=== PATIENT | male | born 1945 | race Caucasian/White ===

== ENCOUNTER → 2018-03-23 | Day surgery (SDC) | payer OTHER ==
[~2018-03-23] MED LIST: BUPIVACAINE 0.25%/EPI 30ML SDV INJ ONE; DEXAMETHASONE SOD PHOS INJ 4 MG/ML VIAL ONE; FENTANYL CITRATE/PF 100MCG/2 ML INJ ONE; LIDOCAINE 1% W/EPINEPHRINE 20 ML VIAL ONE; LIDOCAINE HCL 1% LOCAL INJ 20 ML VIAL ONE; LIDOCAINE HCL 2% LOCAL INJ 5 ML SDV VIAL INJ ONE; MIDAZOLAM HCL 2 MG/2 ML VIAL ONE; ONDANSETRON HCL INJ 2 MG/ML VIAL ONE; PREDNISONE20 MG PO; PROPOFOL IV EMULSION 10 MG/ML 20 ML VIAL ONE; PYRIDOSTIGMINE PO; SEVOFLURANE INHAL SOLN 250 ML PEN BTL ONE
--- OUTSIDE RECORDS SUMMARY | 2018-03-23 10:38 | XMS REPORT | Summary of Care ---
Author Author [facility] Outpatient Imaging [facility] Outpatient [facility] Address Unknown Phone Unavailable Encounter HQ Roman_chad(FIN) [id number] Date(s): 09/13/16 - 09/13/16 [facility] Outpatient Imaging [facility] [address], [address] [place] [phone] Discharge Disposition: Home or Self Care Attending Physician: TAMARA RAMIREZ Vital Signs No data available for this section Problem List Condition Effective Dates Status Health Status Informant Anemia(Confirmed) Resolved Arthritis(Confirmed) Resolved Asthma(Confirmed) Resolved Esophageal Resolved reflux(Confirmed) HTN - Resolved Hypertension(Confirm ed) Myasthenia Resolved gravis(Confirmed) Thrombocytopenia(Con Resolved firmed) Allergies, Adverse Reactions, Alerts Substance Reaction Severity Status NKDA Active Medications No data available for this section Results No data available for this section Immunizations No data available for this section Procedures Procedure Date Related Diagnosis Body Site Operation Social History Social History Type Response Substance Abuse Use: None. Alcohol Never Smoking Status Former smoker; Exposure to Tobacco Smoke None; Cigarette Smoking Last 365 Days No; Reg Smoking Cessation Counseling No Assessment and Plan No data available for this section
--- OUTSIDE RECORDS SUMMARY | 2018-03-23 10:38 | XMS REPORT | Continuity of Care Document ---
Author Author Interface Organization Interface Address Unknown Phone Unavailable Problems Problem Status Onset Date Classification Date Reported Comments Source S03.4XXA - "SPRAIN OF JAW, INITIAL ENCOU Active 09/13/2016 [facility] UNK Active 04/26/2015 [facility] V76.51 285.9 Active 2014 [facility] Anemia Resolved Problem 09/16/2016 [facility] [place] Arthritis Resolved Problem 09/16/2016 [facility] [place] Asthma Resolved Problem 09/16/2016 [facility] [place] Esophageal reflux Resolved Problem 09/16/2016 [facility] [place] HTN - Hypertension Resolved Problem 09/16/2016 [facility] [place] Myasthenia gravis Resolved Problem 09/16/2016 [facility] [place] Thrombocytopenia Resolved Problem 09/16/2016 [facility] [place] 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 [facility] ANEMIA NOS Active [facility] Medications Medication Details Route Status Patient Instructions Ordering Provider Order Date Source Allergies, Adverse Reactions, Alerts Substance Category Reaction Severity Reaction type Status Date Reported Comments Source NKDA Assertion Drug allergy Active [facility] [place] Immunizations Immunization Date Given Site Status Last Updated Comments Source Results Order Name Results Value Reference Range Date Interpretation Comments Source Abdomen complete US Abdomen complete US EXAM: US ABDOMEN COMPLETE DATE: 01/12/2018 7:53 AM CDT INDICATION: - D69.6 Thrombocytopenia, unspecified ADDITIONAL INFORMATION: None. COMPARISON: None. TECHNIQUE: Multiplanar grayscale and color Doppler ultrasound images of the abdomen. FINDINGS: Liver: Craniocaudal length: 13.4 cm. Normal. Echogenicity: Diffusely coarsened echotexture. Surface nodularity: Mild. Mass (size and location): None. Portal vein: Dilated, however no reversal of flow seen. There is recanalized left umbilical vein and abdominal wall collateral. Splenic vein is also dilated. Bile ducts: Common bile duct diameter: 0.48 cm. Intrahepatic ducts: Normal. Gallbladder: Gallstones: None. Gallbladder sludge: None. Gallbladder wall: 0.12 cm. Normal. Pericholecystic fluid: None. Sonographic Le sign: Absent. Pancreas: Head and uncinate process: Not well seen Body and tail: Not seen. Spleen: Craniocaudal length: 13.7 cm. Mildly enlarged. Mass or focal lesion (size and location): None. Right kidney: Hydronephrosis: None. Size: 10.8 x 4.6 x 6.4 cm. Normal. Echogenicity: Normal. Mass/Stone/Cyst (size and location): None. Left kidney: Hydronephrosis: None. Size: 10.6 x 5.7 x 5.5 cm. Normal. Echogenicity: Normal. Mass/Stone/Cyst (size and location): None. Abdominal aorta and IVC: Visualized portions are normal. Ascites: None. IMPRESSION: 1. Cirrhotic liver with stigmata of portal hypertension including recanalized left medical vein, abdominal wall collaterals and mild splenomegaly. 01/12/2018 - - Read by: Izabel Juárez Dictated Date/time: 01/12/18 08:48 Electronically Signed by: Izabel Juárez 01/12/18 08 :53 FINAL REPORT [facility] TMJ open/closed bilateral DX TMJ open/closed bilateral DX EXAM: XR BILATERAL TEMPOROMANDIBULAR JOINTS 6 VIEWS DATE: 09/13/2016 3:17 PM [facility] INDICATION: S03.4XXA Sprain of jaw, initial encounter ADDITIONAL INFORMATION PER TECHNOLOGIST: Swollen left jaw COMPARISON: None available TECHNIQUE: Lateral and frontal and closed views of the bilateral temporomandibular joints FINDINGS: There is a normal radiographic appearance, alignment and excursion of the bilateral temporomandibular joints. No subchondral collapse, sclerosis, cystic change or fracture is identified on either side. No radiopaque foreign body or subcutaneous emphysema is identified in this region. Facet hypertrophy is partially visualized at the cervical spine. IMPRESSION: No bony abnormality of the temporomandibular joint identified on either side. 09/13/2016 - - Read by: Aby Blue MD Dictated Date/time: 09/13/16 16:58 Electronically Signed by: Aby Blue MD 09/13/16 17 :00 FINAL REPORT [facility] Vital Signs Vital Sign Value Date Comments Source Encounters Location Location Details Encounter Type Encounter Number Reason For Visit Attending Provider ADM Date DC Date Status Source [facility] Outpatient Imaging - [place] Out[facility] Diag Services [id number] TAMARA RAMIREZ 09/13/2016 09/14/2016 [facility] To Procedures Procedure Code Date Perfomer Comments Source Operation [id number] EHSAN To
[2018-03-23 12:07] LABS: BASOPHILS % 0.5 % (0.0-1.0); EOSINOPHILS # (AUTO) 0.1 (0.0-0.4); EOSINOPHILS % 3.3 % (0.0-6.0); HEMOGLOBIN 13.5 g/dL (14.0-18.0); LYMPHOCYTES # (AUTO) 0.9 (1.0-3.2); LYMPHOCYTES % 20.4 % (18.0-39.1); MEAN CORPUSCULAR HEMOGLOBIN 33.5 pg (28-32); MEAN CORPUSCULAR HGB CONC 35.5 g/dL (31-35); MEAN CORPUSCULAR VOLUME 94.3 fL (81-99); MONOCYTES # (AUTO) 0.3 (0.2-0.8); MONOCYTES % 7.1 % (4.4-11.3); NEUTROPHILS # (AUTO) 2.9 (2.1-6.9); NEUTROPHILS % 68.5 % (38.7-80.0); PLATELET COUNT 86 x10e3/uL (140-360); RED BLOOD COUNT 4.03 x10e6/uL (4.3-5.7); RED CELL DISTRIBUTION WIDTH 12.4 % (11.7-14.4)
[2018-03-23 12:28] LABS: ANION GAP 14.2 mmol/L (8-16); BLOOD UREA NITROGEN 8 mg/dL (7-26); BUN/CREATININE RATIO 10 (6-25); CALCIUM 8.9 mg/dL (8.4-10.2); CARBON DIOXIDE 22 mmol/L (22-29); CHLORIDE 104 mmol/L (98-107); EST GLOMERULAR FILTRATION RATE > 60 ML/MIN (60-); GLUCOSE 120 mg/dL (74-118); POTASSIUM 4.2 mmol/L (3.5-5.1); SODIUM 136 mmol/L (136-145)
--- NOTE | 2018-03-23 15:27 | Operative Report ---
DATE OF PROCEDURE: March 23, 2018 PREOPERATIVE DIAGNOSIS: Abscess of the left buttocks from a spider bite. POSTOPERATIVE DIAGNOSIS: Abscess of the left buttocks from a spider bite. OPERATION PERFORMED: Excisional debridement of necrotic abscess of the left buttock. ANESTHESIA: General. COMPLICATIONS: None. ESTIMATED BLOOD LOSS: Minimal. DESCRIPTION OF PROCEDURE: With the patient lying in bed in the lithotomy position under good general anesthesia, the perineum was prepped with Betadine solution and draped in the usual manner. At the tip of the left buttock there was an area with necrotic skin. This was sharply excised with a knife. The necrotic inflammatory process extended all the way into the subcutaneous tissue and this was all sharply debrided with a knife and all of the hardened, infected material was resected from the tip of the buttocks. The whole area was then thoroughly irrigated and perfect hemostasis was ascertained. The wound was then infiltrated with 1/4 percent Marcaine with epinephrine, packed with 1/4 inch iodoform gauze. A dressing was applied. The sponge, lap, needle count was correct. Patient tolerated the procedure well and returned to the recovery room in stable condition. Job#: [id number] DANO
== END | disposition home or self-care (01) ==
LOC: OR 10:36
PROVIDERS: ATTEND Surgery
DX: L02.31 Cutaneous abscess of buttock (principal); S30.860A Insect bite (nonvenomous) of lower back and pelvis, initial encounter; G70.00 Myasthenia gravis without (acute) exacerbation; R05 Cough; K44.9 Diaphragmatic hernia without obstruction or gangrene; I45.10 Unspecified right bundle-branch block; F17.200 Nicotine dependence, unspecified, uncomplicated; W57.XXXA Bitten or stung by nonvenomous insect and other nonvenomous arthropods, initial encounter
CPT/HCPCS: 11042; 36415; 80048; 85025; 93005; J1100; J2001; J2250; J2405

== ENCOUNTER 2018-06-27 12:08 | Observation (INO) | payer OTHER ==
[~2018-06-27] VITALS: Ht 188 cm; Wt 99.4 kg
[~2018-06-27 12:08] MED LIST changes: -BUPIVACAINE 0.25%/EPI 30ML SDV INJ ONE; -DEXAMETHASONE SOD PHOS INJ 4 MG/ML VIAL ONE; -FENTANYL CITRATE/PF 100MCG/2 ML INJ ONE; -LIDOCAINE 1% W/EPINEPHRINE 20 ML VIAL ONE; -LIDOCAINE HCL 1% LOCAL INJ 20 ML VIAL ONE; -LIDOCAINE HCL 2% LOCAL INJ 5 ML SDV VIAL INJ ONE; -MIDAZOLAM HCL 2 MG/2 ML VIAL ONE; -ONDANSETRON HCL INJ 2 MG/ML VIAL ONE; -PROPOFOL IV EMULSION 10 MG/ML 20 ML VIAL ONE; -SEVOFLURANE INHAL SOLN 250 ML PEN BTL ONE
[2018-06-27] MEDS ORDERED: PYRIDOSTIGMINE60 MG PO (12:25)
[2018-06-27] MEDS ORDERED: PREDNISONE10 MG PO (12:25)
[2018-06-27] MEDS ORDERED: SODIUM CHLORIDE 0.9% 500ML 500 ML IV ONE (13:30)
[2018-06-27 13:55] LABS: BASOPHILS % 0.5 % (0.0-1.0); EOSINOPHILS # (AUTO) 0.2 (0.0-0.4); EOSINOPHILS % 3.5 % (0.0-6.0); HEMATOCRIT 37.3 % (38.2-49.6); HEMOGLOBIN 12.8 g/dL (14.0-18.0); LYMPHOCYTES # (AUTO) 1.3 (1.0-3.2); LYMPHOCYTES % 30.5 % (18.0-39.1); MEAN CORPUSCULAR HEMOGLOBIN 33.5 pg (28-32); MEAN CORPUSCULAR HGB CONC 34.3 g/dL (31-35); MEAN CORPUSCULAR VOLUME 97.6 fL (81-99); MONOCYTES # (AUTO) 0.4 (0.2-0.8); MONOCYTES % 9.2 % (4.4-11.3); NEUTROPHILS # (AUTO) 2.4 (2.1-6.9); NEUTROPHILS % 56.1 % (38.7-80.0); PLATELET COUNT 76 x10e3/uL (140-360); RED BLOOD COUNT 3.82 x10e6/uL (4.3-5.7); RED CELL DISTRIBUTION WIDTH 13.2 % (11.7-14.4)
[2018-06-27 14:00] LABS: INR 1.29; PARTIAL THROMBOPLASTIN TIME 25.8 seconds (23.8-35.5); PROTHROMBIN TIME 15.1 seconds (11.9-14.5)
--- NOTE | 2018-06-27 14:04 | Diagnostic Imaging Report ---
EXAMINATION: CHEST 2 VIEWS INDICATION: Rash \S\SOB COMPARISON: None FINDINGS: PA and lateral views TUBES and LINES: None. LUNGS: Lungs are well inflated. Left basilar atelectasis. There is no evidence of pneumonia or pulmonary edema. Right hemidiaphragmatic eventration. PLEURA: No pleural effusion or pneumothorax. Calcified pleural plaque seen on lateral x-ray. HEART AND MEDIASTINUM: The cardiomediastinal silhouette is unremarkable. There are atherosclerotic calcifications within the aorta. BONES AND SOFT TISSUES: No acute osseous lesion. Anterior cervical fusion plate. Soft tissues are unremarkable. UPPER ABDOMEN: No free air under the diaphragm. IMPRESSION: No acute thoracic abnormality. Signed by: Dr. Elvis Rojas M.D. on 06/27/2018 2:01 PM
[2018-06-27 14:10] LABS: ALANINE AMINOTRANSFERASE 21 IU/L (0-55); ALBUMIN 3.4 g/dL (3.5-5.0); ALBUMIN/GLOBULIN RATIO 1.2 (0.8-2.0); ALKALINE PHOSPHATASE 51 IU/L (40-150); ANION GAP 13.3 mmol/L (8-16); BLOOD UREA NITROGEN 10 mg/dL (7-26); BUN/CREATININE RATIO 12 (6-25); CALCIUM 8.8 mg/dL (8.4-10.2); CARBON DIOXIDE 22 mmol/L (22-29); CHLORIDE 107 mmol/L (98-107); CREATINE KINASE 75 IU/L (30-200); CREATININE, SERUM 0.81 mg/dL (0.72-1.25); EST GLOMERULAR FILTRATION RATE > 60 ML/MIN (60-); GLUCOSE 156 mg/dL (74-118); MAGNESIUM 1.8 MG/DL (1.3-2.1); POTASSIUM 3.3 mmol/L (3.5-5.1); SODIUM 139 mmol/L (136-145)
[2018-06-27 14:30] LABS: THYROID STIMULATING HORMONE 3.531 uIU/mL (0.350-4.940)
[2018-06-27 14:59] LABS: CLARITY,URINE CLEAR (CLEAR); COLOR,URINE STRAW (YELLOW); KETONES,URINE NEGATIVE (NEGATIVE); LEUKOCYTE ESTERASE ,URINE NEGATIVE (NEGATIVE); NITRITE,URINE NEGATIVE (NEGATIVE); PROTEIN,URINE DIPSTICK NEGATIVE (NEGATIVE)
[2018-06-27 15:00] LABS: BILIRUBIN,URINE NEGATIVE (NEGATIVE); URINE UROBILINOGEN 0.2 mg/dL (0.2 - 1)
[2018-06-27 15:15] LABS: WBC,URINE (MAN) 0-5 /HPF (0-5)
[2018-06-27 18:26] VITALS: BP 147/65
[2018-06-27 18:33] VITALS: BP 147/65
[2018-06-27 19:56] VITALS: BP 133/75
[2018-06-27 20:00] VITALS: BP 133/75
[2018-06-27 22:12] LABS: CREATINE KINASE 61 IU/L (30-200)
[2018-06-28] VITALS (7 sets, daily range): BP systolic 113–141; BP diastolic 61–81
[2018-06-28 04:54] LABS: BASOPHILS % 0.3 % (0.0-1.0); EOSINOPHILS # (AUTO) 0.1 (0.0-0.4); HEMATOCRIT 35.1 % (38.2-49.6); HEMOGLOBIN 11.9 g/dL (14.0-18.0); LYMPHOCYTES # (AUTO) 1.1 (1.0-3.2); LYMPHOCYTES % 35.3 % (18.0-39.1); MEAN CORPUSCULAR HGB CONC 33.9 g/dL (31-35); MEAN CORPUSCULAR VOLUME 97.2 fL (81-99); MONOCYTES # (AUTO) 0.2 (0.2-0.8); MONOCYTES % 7.9 % (4.4-11.3); NEUTROPHILS # (AUTO) 1.6 (2.1-6.9); NEUTROPHILS % 53.5 % (38.7-80.0); PLATELET COUNT 63 x10e3/uL (140-360); RED BLOOD COUNT 3.61 x10e6/uL (4.3-5.7); RED CELL DISTRIBUTION WIDTH 13.1 % (11.7-14.4)
[2018-06-28 05:15] LABS: ALANINE AMINOTRANSFERASE 19 IU/L (0-55); ALBUMIN 3.1 g/dL (3.5-5.0); ALBUMIN/GLOBULIN RATIO 1.3 (0.8-2.0); ALKALINE PHOSPHATASE 42 IU/L (40-150); ANION GAP 12.6 mmol/L (8-16); BLOOD UREA NITROGEN 10 mg/dL (7-26); BUN/CREATININE RATIO 13 (6-25); CALCIUM 8.4 mg/dL (8.4-10.2); CARBON DIOXIDE 22 mmol/L (22-29); CHLORIDE 107 mmol/L (98-107); CREATININE, SERUM 0.75 mg/dL (0.72-1.25); EST GLOMERULAR FILTRATION RATE > 60 ML/MIN (60-); GLUCOSE 93 mg/dL (74-118); POTASSIUM 3.6 mmol/L (3.5-5.1); SODIUM 138 mmol/L (136-145)
[2018-06-28 05:55] LABS: CREATINE KINASE 53 IU/L (30-200)
[2018-06-28] MEDS: PREDNISONE 20 MG TAB PO SCH (08:51)
[2018-06-28] MEDS: PYRIDOSTIGMINE BROMIDE 60 MG TAB PO SCH ×4 (08:51→20:32)
[2018-06-28] MEDS ORDERED: PREDNISONE 10 MG TAB PO SCH (09:00)
[2018-06-28] MEDS: SODIUM CHLORIDE 0.9% 1000ML 1,000 ML IV SCH ×2 (09:45→23:05)
[2018-06-28] MEDS: LORATADINE 10 MG TAB PO SCH (10:00)
--- NOTE | 2018-06-28 11:17 | History and Physical ---
CHIEF COMPLAINT: Increasing upper respiratory congestion associated with myasthenia gravis. HISTORY OF PRESENT ILLNESS: Patient is a 72-year-old male who has myasthenia gravis diagnosed approximately 5 to 6 years ago. The patient has no complications other than his visual changes. He is on chronic prednisone 5 mg daily. The patient was doing well. He is also on pyridostigmine as well. He was having some visual changes recently and he was placed on a high dose steroids of 40 mg once a day. After he received 40 mg once a day he developed some swelling in both lower extremities with some petechial rash. He had some itching. The patient also had some upper respiratory symptoms, therefore he called his neurologist and was told to go to emergency room. He is on observation. He is doing a little better now on lower dose of 20 mg of prednisone once a day, which changed just a few days ago. Prior to that he was on 40 mg. PAST MEDICAL HISTORY: Myasthenia gravis. PAST SURGICAL HISTORY: Neck surgery. SOCIAL HISTORY: The patient does not smoke or use alcohol. No recreational drugs. ALLERGIES: NO KNOWN ALLERGIES. HOME MEDICATIONS: Pyridostigmine 60 mg four times a day, prednisone 20 mg daily started on recently, but prior to that it was 5 mg daily. PHYSICAL EXAMINATION VITAL SIGNS: Temperature is 98, blood pressure 130/81, pulse rate of 51, respirations 18. GENERAL: The patient is not in acute distress. He is awake. HEENT: Normocephalic, atraumatic. Anicteric. NECK: Supple grossly. PULMONARY: Clear. CARDIOVASCULAR: Regular rate and rhythm. ABDOMEN: Soft, unremarkable. EXTREMITIES: No cyanosis, no edema. NEUROLOGIC: No focal deficit. LABORATORY: Otherwise unremarkable. IMPRESSION 1. Upper respiratory infection. 2. Exacerbation of myasthenia gravis. PLAN: Continue with home medication. Monitor the patient closely. Some IV fluid. Upper respiratory treatment. Claritin once a day and Singulair 10 mg at night. We will monitor the patient closely at this time. Job#: [id number] [place]
[2018-06-28] MEDS ORDERED: ACETAMINOPHEN 325 MG TAB PO PRN (12:00)
--- NOTE | 2018-06-28 21:36 | Cardiology Report ---
DATE OF STUDY: ECHOCARDIOGRAM ATTENDING PHYSICIAN: Dr. Wilma Ibarra. M-MODE: Normal chamber wall dimensions. Normal contractility. Heavily sclerotic aortic valve, cannot exclude vegetation. Normal mitral valve. No pericardial effusion. SECTOR SCAN: Normal chamber wall dimensions. Normal contractility. Heavily sclerotic aortic valve, cannot rule out aortic vegetation. Normal mitral tricuspid valves. No pericardial effusion. CAROTID DOPPLER STUDY WITH COLOR: Trace tricuspid regurgitation. Aortic velocity is 1.3 m/s. CONCLUSIONS 1. Heavily sclerotic aortic valve without aortic stenosis. Aortic vegetation cannot be completely excluded. Clinical correlation is recommended. 2. Left ventricular ejection fraction is approximately 60%. 3. Trace tricuspid regurgitation, probably not clinically significant. Job#: [id number] [place]U cc:WILMA IBARRA MD
[2018-06-29] VITALS: BP 102/55
[2018-06-29 04:00] VITALS: BP 99/54
[2018-06-29 05:50] LABS: BLOOD UREA NITROGEN 11 mg/dL (7-26); BUN/CREATININE RATIO 14 (6-25); CALCIUM 8.4 mg/dL (8.4-10.2); CARBON DIOXIDE 25 mmol/L (22-29); CHLORIDE 106 mmol/L (98-107); EST GLOMERULAR FILTRATION RATE > 60 ML/MIN (60-); GLUCOSE 93 mg/dL (74-118); SODIUM 138 mmol/L (136-145)
[2018-06-29 08:09] VITALS: BP 121/75
[2018-06-29] MEDS: PYRIDOSTIGMINE BROMIDE 60 MG TAB PO SCH (09:00)
[2018-06-29] MEDS: LORATADINE 10 MG TAB PO SCH (09:00)
[2018-06-29] MEDS: PREDNISONE 20 MG TAB PO SCH (09:00)
--- NOTE | 2018-06-29 10:02 | Discharge Summary ---
The patient was in observation. FINAL DIAGNOSES 1. Upper respiratory symptoms, most likely allergic rhinitis with sinus congestion. 2. Baseline myasthenia gravis, progressive. SUMMARY: A 72-year-old male came in with some groin rash area that resolved. The patient stated that when he increased his prednisone to 40 mg daily for his exacerbation of myasthenia gravis, he developed some rash, but that now resolved. He is back to 20 mg of prednisone daily. He does have some sinus congestion, which was treated with Claritin. The patient is asymptomatic. No sign of infection. He will go home today and resume his home medication and continue with prednisone 20 mg daily. I advised the patient to follow with Dr. Morales this week. Dr. Morales is his neurologist. Patient can take Claritin 10 mg daily. Job#: [id number] [place]
[2018-06-29 10:32] VITALS: BP 121/75
[2018-06-29] MEDS ORDERED: LORATADINE10 MG PO (11:00)
[2018-06-29 11:43] VITALS: BP 117/61
== END 2018-06-29 13:02 | disposition home or self-care (01) ==
LOC: ER 12:09 → ERHOLD 16:52 → IMCU 18:04 → MED/SURG2 06-28 06:09
PROVIDERS: ADMIT Internal Medicine; ATTEND Internal Medicine
DX: G70.01 Myasthenia gravis with (acute) exacerbation (principal); J06.9 Acute upper respiratory infection, unspecified; R21 Rash and other nonspecific skin eruption
CPT/HCPCS: 36415 ×3; 71046; 80048; 80053 ×2; 81001; 82550 ×2; 82553 ×2; 83735; 83880; 84443 ×2; 84484 ×2; 85025 ×2; 85610; 85730; 87086; 93005; 93306; 99284; G0378 ×3; J7030; J7040

== ENCOUNTER 2020-08-25 01:19 | Observation (INO) | payer MEDICARE, OTHER ==
[2020-08-25] VITALS (11 sets, daily range): BP systolic 112–163; BP diastolic 62–103
[~2020-08-25] VITALS: Ht 188 cm; Wt 99.8 kg
[~2020-08-25 01:19] MED LIST changes: +LORATADINE10 MG PO; +PREDNISONE10 MG PO; +PYRIDOSTIGMINE60 MG PO
[2020-08-25] MEDS ORDERED: FAMOTIDINE 20 MG/2 ML VIAL IV STA (01:35)
[2020-08-25 01:41] LABS: BASOPHILS % 0.5 % (0.0-1.0); EOSINOPHILS # (AUTO) 0.1 (0.0-0.4); EOSINOPHILS % 1.6 % (0.0-6.0); HEMATOCRIT 38.6 % (38.2-49.6); HEMOGLOBIN 13.4 g/dL (14.0-18.0); LYMPHOCYTES % 26.1 % (18.0-39.1); MEAN CORPUSCULAR HGB CONC 34.7 g/dL (31-35); MONOCYTES # (AUTO) 0.3 (0.2-0.8); MONOCYTES % 7.8 % (4.4-11.3); NEUTROPHILS # (AUTO) 2.4 (2.1-6.9); NEUTROPHILS % 63.5 % (38.7-80.0); PLATELET COUNT 73 x10e3/uL (140-360); RED BLOOD COUNT 3.94 x10e6/uL (4.3-5.7); RED CELL DISTRIBUTION WIDTH 12.7 % (11.7-14.4)
[2020-08-25] MEDS ORDERED: MAGNESIUM/ALUMINUM/SIMETHICONE 30 ML UDC PO ONE (01:45)
[2020-08-25] MEDS ORDERED: BELLADONNA ALK/PHENOBARBITAL 5 ML UDC PO ONE (01:45)
[2020-08-25] MEDS ORDERED: LIDOCAINE VISC 2% SOLN 15 ML UDC PO ONE (01:45)
[2020-08-25] MEDS ORDERED: DONNATAL/LIDOCAINE/MAALOX 30 ML SUSP PO ONE (01:45)
[2020-08-25] MEDS ORDERED: ASPIRIN 81 MG CHEW TAB PO ONE (01:45)
[2020-08-25 01:56] LABS: ALANINE AMINOTRANSFERASE 21 IU/L (0-55); ALBUMIN 3.4 g/dL (3.5-5.0); ALBUMIN/GLOBULIN RATIO 0.8 (0.8-2.0); ALKALINE PHOSPHATASE 79 IU/L (40-150); ANION GAP 10.6 mmol/L (8-16); BLOOD UREA NITROGEN 9 mg/dL (7-26); BUN/CREATININE RATIO 11 (6-25); CALCIUM 8.4 mg/dL (8.4-10.2); CARBON DIOXIDE 23 mmol/L (22-29); CHLORIDE 105 mmol/L (98-107); CREATINE KINASE 84 IU/L (30-200); CREATININE, SERUM 0.82 mg/dL (0.72-1.25); EST GLOMERULAR FILTRATION RATE > 60 ML/MIN (60-); GLUCOSE 134 mg/dL (74-118); POTASSIUM 3.6 mmol/L (3.5-5.1); SODIUM 135 mmol/L (136-145)
[2020-08-25 08:43] LABS: CREATINE KINASE MB 1.8 ng/mL (0-5.0)
[2020-08-25] MEDS ORDERED: MAALOX/LIDOCAINE/BENADRYL/NYST 30 ML BTL PO PRN ×2 (10:00→15:45)
[2020-08-25] MEDS ORDERED: HYDRALAZINE HCL 25 MG TAB PO PRN (10:00)
[2020-08-25] MEDS ORDERED: ALPRAZOLAM 0.25 MG TAB PO PRN (10:00)
[2020-08-25] MEDS ORDERED: AMLODIPINE BESYLATE 5 MG TAB PO ONE (11:00)
[2020-08-25] MEDS: FAMOTIDINE 20 MG TAB PO SCH ×2 (11:50→16:10)
[2020-08-25] MEDS ORDERED: SODIUM CHLORIDE 0.9% 50ML 50 ML ONE (12:04)
[2020-08-25] MEDS ORDERED: IOPAMIDOL 370 MG/ML 200 ML INFUS..BTL INJ ONE (12:04)
[2020-08-25] MEDS ORDERED: PYRIDOSTIGMINE BROMIDE 60 MG TAB PO SCH (15:00)
[2020-08-25] MEDS ORDERED: MAGNESIUM/ALUMINUM/SIMETHICONE 30 ML UDC PO PRN (15:30)
[2020-08-25] MEDS: PYRIDOSTIGMINE BROMIDE 60 MG TAB PO SCH ×2 (16:10→19:07)
[2020-08-25] MEDS ORDERED: PREDNISONE 5 MG TAB PO SCH (17:00)
[2020-08-25] MEDS ORDERED: PREDNISONE 10 MG TAB PO SCH ×2 (17:00)
[2020-08-25 17:34] LABS: CREATINE KINASE MB 2.1 ng/mL (0-5.0)
[2020-08-26 00:20] VITALS: BP 118/56
[2020-08-26 04:00] VITALS: BP 129/72
[2020-08-26 06:33] LABS: BASOPHILS % 0.4 % (0.0-1.0); EOSINOPHILS # (AUTO) 0.1 (0.0-0.4); EOSINOPHILS % 3.2 % (0.0-6.0); HEMATOCRIT 34.6 % (38.2-49.6); HEMOGLOBIN 11.8 g/dL (14.0-18.0); LYMPHOCYTES # (AUTO) 0.9 (1.0-3.2); LYMPHOCYTES % 36.9 % (18.0-39.1); MEAN CORPUSCULAR HEMOGLOBIN 33.9 pg (28-32); MEAN CORPUSCULAR HGB CONC 34.1 g/dL (31-35); MEAN CORPUSCULAR VOLUME 99.4 fL (81-99); MONOCYTES # (AUTO) 0.3 (0.2-0.8); MONOCYTES % 10.4 % (4.4-11.3); NEUTROPHILS # (AUTO) 1.2 (2.1-6.9); NEUTROPHILS % 49.1 % (38.7-80.0); PLATELET COUNT 59 x10e3/uL (140-360); RED BLOOD COUNT 3.48 x10e6/uL (4.3-5.7); RED CELL DISTRIBUTION WIDTH 12.8 % (11.7-14.4)
[2020-08-26 06:39] LABS: CHOL/HDL RATIO 2.1 (3.9-4.7)
[2020-08-26] MEDS: FAMOTIDINE 20 MG TAB PO SCH (07:11)
[2020-08-26 08:00] VITALS: BP 140/77
[2020-08-26] MEDS: PYRIDOSTIGMINE BROMIDE 60 MG TAB PO SCH (08:46)
[2020-08-26 08:55] VITALS: BP 140/77
[2020-08-26] MEDS ORDERED: PREDNISONE 10 MG TAB PO SCH (09:00)
[2020-08-26] MEDS ORDERED: AMLODIPINE BESYLATE 5 MG TAB PO SCH (09:00)
[2020-08-26 09:07] VITALS: BP 140/77
[2020-08-26] MEDS ORDERED: OMEPRAZOLE40 MG (10:14)
[2020-08-26] MEDS ORDERED: PROPRANOLOL HCL10 MG PO (10:14)
[2020-08-26] MEDS ORDERED: TRAMADOL HCL25 GM PO (10:15)
== END 2020-08-26 10:45 | disposition home or self-care (01) ==
LOC: ER 01:27 → ERHOLD 03:17 → MED/SURG3 03:39
PROVIDERS: ADMIT Internal Medicine; ATTEND Internal Medicine
DX: R07.89 Other chest pain (principal); G70.00 Myasthenia gravis without (acute) exacerbation; R10.13 Epigastric pain; Z20.828 Contact with and (suspected) exposure to other viral communicable diseases; E66.9 Obesity, unspecified; F41.1 Generalized anxiety disorder; K21.9 Gastro-esophageal reflux disease without esophagitis; K74.60 Unspecified cirrhosis of liver; I85.10 Secondary esophageal varices without bleeding; Z68.28 Body mass index [BMI] 28.0-28.9, adult
CPT/HCPCS: 36415 ×2; 71045; 71260; 74177; 80053; 80061; 82550; 82553; 83690; 83880; 84484; 85025 ×2; 93005; 96374; 99284; G0378 ×2; J7512 ×2; Q9967; U0002

== ENCOUNTER 2022-07-13 21:15 | Inpatient (IN) | payer MEDICARE ==
[~2022-07-13] VITALS: Ht 188 cm; Wt 97.5 kg
[~2022-07-13 21:15] MED LIST changes: +OMEPRAZOLE40 MG; +PROPRANOLOL HCL10 MG PO; +TRAMADOL HCL25 GM PO
[2022-07-13] MEDS ORDERED: LIDOCAINE JELLY 2% 10ML URO-JET TOP ONE (21:30)
[2022-07-13 21:31] LABS: BASOPHILS % 0.2 % (0.0-1.0); EOSINOPHILS # (AUTO) 0.1 (0.0-0.4); EOSINOPHILS % 1.2 % (0.0-6.0); HEMOGLOBIN 12.5 g/dL (14.0-18.0); LYMPHOCYTES # (AUTO) 0.9 (1.0-3.2); LYMPHOCYTES % 16.1 % (18.0-39.1); MEAN CORPUSCULAR HEMOGLOBIN 34.8 pg (28-32); MEAN CORPUSCULAR HGB CONC 33.8 g/dL (31-35); MEAN CORPUSCULAR VOLUME 103.1 fL (81-99); MONOCYTES # (AUTO) 0.6 (0.2-0.8); MONOCYTES % 10.8 % (4.4-11.3); NEUTROPHILS # (AUTO) 4.2 (2.1-6.9); NEUTROPHILS % 71.4 % (38.7-80.0); PLATELET COUNT 61 x10e3/uL (140-360); RED BLOOD COUNT 3.59 x10e6/uL (4.3-5.7); RED CELL DISTRIBUTION WIDTH 12.5 % (11.7-14.4)
[2022-07-13] MEDS ORDERED: KETOROLAC TROMETHAMINE 30 MG/ML VIAL IV STA (21:51)
[2022-07-13 21:53] LABS: ANION GAP 14.6 mmol/L (8-16); CALCIUM 8.4 mg/dL (8.4-10.2); CREATININE, SERUM 0.89 mg/dL (0.72-1.25); POTASSIUM 3.6 mmol/L (3.5-5.1)
[2022-07-13] MEDS ORDERED: KETOROLAC TROMETHAMINE 30 MG/ML VIAL ONE (22:07)
[2022-07-13 22:28] LABS: BACTERIA,URINE MANY /HPF; CLARITY,URINE CLOUDY (CLEAR); COLOR,URINE AMBER (YELLOW); EPITHELIAL CELLS,URINE FEW /LPF; KETONES,URINE NEGATIVE (NEGATIVE); LEUKOCYTE ESTERASE ,URINE NEGATIVE (NEGATIVE); NITRITE,URINE NEGATIVE (NEGATIVE); PROTEIN,URINE DIPSTICK >=300 (NEGATIVE); RBC,URINE >50 /HPF (0-5); URINE UROBILINOGEN 1 mg/dL (0.2 - 1)
[2022-07-13] MEDS ORDERED: Morphine 4mg INJECTION 4 MG/ML INJ IV PRN (23:30)
[2022-07-13] MEDS ORDERED: ONDANSETRON HCL INJ 2MG/ML 2ML 2 MG/ML VIAL IV PRN (23:30)
[2022-07-13] MEDS: SODIUM CHLORIDE 0.9% 1000ML 1,000 ML IV SCH (23:53)
[2022-07-13] MEDS ORDERED: Morphine 4mg INJECTION 4 MG/ML INJ ONE (23:57)
[2022-07-13] MEDS ORDERED: CEFTRIAXONE 1 GM VIAL ONE (23:58)
[2022-07-13] MEDS ORDERED: SODIUM CHLORIDE 0.9% 1000ML 1,000 ML ONE (23:58)
[2022-07-13] MEDS ORDERED: ONDANSETRON HCL INJ 2MG/ML 2ML 2 MG/ML VIAL ONE (23:58)
[2022-07-14] MEDS ORDERED: PREDNISONE5 MG PO (00:39)
[2022-07-14] MEDS ORDERED: PREDNISONE10 MG PO (00:39)
[2022-07-14] MEDS ORDERED: PYRIDOSTIGMINE60 MG PO (00:39)
[2022-07-14] MEDS ORDERED: FLOMAX0.4 MG PO (00:45)
[2022-07-14] MEDS ORDERED: DILTIAZEM 24HR120 M1 PO (00:45)
[2022-07-14 05:27] LABS: BASOPHILS % 0.3 % (0.0-1.0); EOSINOPHILS # (AUTO) 0.1 (0.0-0.4); EOSINOPHILS % 2.1 % (0.0-6.0); HEMATOCRIT 31.9 % (38.2-49.6); HEMOGLOBIN 10.8 g/dL (14.0-18.0); LYMPHOCYTES # (AUTO) 0.6 (1.0-3.2); MEAN CORPUSCULAR HEMOGLOBIN 35.1 pg (28-32); MEAN CORPUSCULAR HGB CONC 33.9 g/dL (31-35); MEAN CORPUSCULAR VOLUME 103.6 fL (81-99); MONOCYTES # (AUTO) 0.3 (0.2-0.8); MONOCYTES % 9.6 % (4.4-11.3); NEUTROPHILS # (AUTO) 2.3 (2.1-6.9); NEUTROPHILS % 69.7 % (38.7-80.0); RED BLOOD COUNT 3.08 x10e6/uL (4.3-5.7); RED CELL DISTRIBUTION WIDTH 12.5 % (11.7-14.4)
[2022-07-14 05:50] LABS: ANION GAP 10.8 mmol/L (8-16); CALCIUM 7.8 mg/dL (8.4-10.2); CREATININE, SERUM 1.07 mg/dL (0.72-1.25); POTASSIUM 3.8 mmol/L (3.5-5.1)
[2022-07-14 05:54] LABS: PLATELET COUNT 45 x10e3/uL (140-360)
[2022-07-14] MEDS: SODIUM CHLORIDE 0.9% 1000ML 1,000 ML IV SCH ×2 (07:19→18:08)
[2022-07-14] MEDS: DILTIAZEM HCL ER 120 MG CAP PO SCH (10:23)
[2022-07-14] MEDS ORDERED: DOCUSATE SODIUM 100 MG CAP PO PRN (11:15)
[2022-07-14] MEDS ORDERED: BENZONATATE 100 MG CAP PO PRN (11:15)
[2022-07-14] MEDS ORDERED: SIMETHICONE 80 MG CHEW PO PRN (11:15)
[2022-07-14] MEDS ORDERED: DEXTROSE 50% SYRINGE 50 ML IV PRN (11:15)
[2022-07-14] MEDS ORDERED: ONDANSETRON HCL INJ 2MG/ML 2ML 2 MG/ML VIAL IV PRN (11:15)
[2022-07-14] MEDS ORDERED: ACETAMINOPHEN 325 MG TAB PO PRN (11:15)
[2022-07-14] MEDS ORDERED: ALBUTEROL/IPRATROPIUM 3 ML NEB NEB PRN (11:15)
[2022-07-14] MEDS ORDERED: HYDRALAZINE HCL 20 MG/ML VIAL IV PRN (11:15)
[2022-07-14] MEDS ORDERED: LIDOCAINE 4% PATCH TP PRN (11:15)
[2022-07-14] MEDS ORDERED: DIPHENHYDRAMINE HCL 25 MG CAP PO PRN (11:15)
[2022-07-14] MEDS ORDERED: POTASSIUM CHLORIDE 20 MEQ TAB CR PO PRN (11:15)
[2022-07-14 13:10] VITALS: BP 147/76
[2022-07-14 14:19] VITALS: BP 147/76
[2022-07-14 14:24] VITALS: BP 147/76
[2022-07-14] MEDS: PYRIDOSTIGMINE BROMIDE 60 MG TAB PO SCH ×2 (14:59→21:00)
[2022-07-14 15:58] VITALS: BP 153/79
[2022-07-14] MEDS: ENOXAPARIN SOD INJ 40 MG/0.4 ML SYR SC SCH (17:00)
[2022-07-14] MEDS: TAMSULOSIN HCL 0.4 MG CAP PO SCH (17:12)
[2022-07-14 20:00] VITALS: BP 133/62
[2022-07-14 21:00] VITALS: BP 133/62
[2022-07-14] MEDS ORDERED: MELATONIN 5 MG TABLET PO PRN (21:00)
[2022-07-14] MEDS ORDERED: PREDNISONE 5 MG TAB PO SCH (21:00)
[2022-07-15] VITALS (8 sets, daily range): BP systolic 120–145; BP diastolic 59–76
[2022-07-15 05:38] LABS: BASOPHILS % 0.4 % (0.0-1.0); EOSINOPHILS % 1.8 % (0.0-6.0); HEMATOCRIT 30.1 % (38.2-49.6); HEMOGLOBIN 10.1 g/dL (14.0-18.0); LYMPHOCYTES # (AUTO) 0.6 (1.0-3.2); LYMPHOCYTES % 24.7 % (18.0-39.1); MEAN CORPUSCULAR HEMOGLOBIN 35.1 pg (28-32); MEAN CORPUSCULAR HGB CONC 33.6 g/dL (31-35); MEAN CORPUSCULAR VOLUME 104.5 fL (81-99); MONOCYTES # (AUTO) 0.2 (0.2-0.8); MONOCYTES % 10.8 % (4.4-11.3); NEUTROPHILS # (AUTO) 1.4 (2.1-6.9); NEUTROPHILS % 62.3 % (38.7-80.0); RED BLOOD COUNT 2.88 x10e6/uL (4.3-5.7); RED CELL DISTRIBUTION WIDTH 12.3 % (11.7-14.4)
[2022-07-15 06:07] LABS: ANION GAP 9.7 mmol/L (8-16); CALCIUM 7.6 mg/dL (8.4-10.2); CREATININE, SERUM 0.73 mg/dL (0.72-1.25); MAGNESIUM 2.3 MG/DL (1.3-2.1); PHOSPHORUS 3.1 MG/DL (2.3-4.7); POTASSIUM 3.7 mmol/L (3.5-5.1)
[2022-07-15 06:14] LABS: PLATELET COUNT 43 x10e3/uL (140-360)
[2022-07-15 06:17] LABS: THYROID STIMULATING HORMONE 1.242 uIU/mL (0.350-4.940)
[2022-07-15] MEDS: PYRIDOSTIGMINE BROMIDE 60 MG TAB PO SCH ×2 (09:00→15:00)
[2022-07-15] MEDS: PANTOPRAZOLE SOD 40 MG TABEC PO SCH (09:00)
[2022-07-15] MEDS ORDERED: PREDNISONE 10 MG TAB PO SCH (09:00)
[2022-07-15] MEDS: DILTIAZEM HCL ER 120 MG CAP PO SCH (09:00)
[2022-07-15] MEDS: TAMSULOSIN HCL 0.4 MG CAP PO SCH ×2 (09:00→17:00)
[2022-07-15] MEDS: ENOXAPARIN SOD INJ 40 MG/0.4 ML SYR SC SCH (17:00)
[2022-07-15] MEDS: PREDNISONE 5 MG TAB PO SCH (18:30)
[2022-07-15] MEDS: SODIUM CHLORIDE 0.9% 1000ML 1,000 ML IV SCH ×2 (19:25→20:32)
[2022-07-16] VITALS (8 sets, daily range): BP systolic 105–140; BP diastolic 55–70
[2022-07-16] MEDS: SODIUM CHLORIDE 0.9% 1000ML 1,000 ML IV SCH (08:44)
[2022-07-16] MEDS: DILTIAZEM HCL ER 120 MG CAP PO SCH (08:44)
[2022-07-16] MEDS: TAMSULOSIN HCL 0.4 MG CAP PO SCH ×2 (08:44→16:42)
[2022-07-16] MEDS: PYRIDOSTIGMINE BROMIDE 60 MG TAB PO SCH ×3 (08:45→18:18)
[2022-07-16] MEDS: PANTOPRAZOLE SOD 40 MG TABEC PO SCH (08:45)
[2022-07-16] MEDS: PREDNISONE 10 MG TAB PO SCH (08:45)
[2022-07-16] MEDS: PREDNISONE 5 MG TAB PO SCH (18:19)
[2022-07-17] VITALS (8 sets, daily range): BP systolic 131–155; BP diastolic 64–72
[2022-07-17] MEDS: SODIUM CHLORIDE 0.9% 1000ML 1,000 ML IV SCH ×2 (01:03→14:14)
[2022-07-17 07:08] LABS: BASOPHILS % 0.5 % (0.0-1.0); EOSINOPHILS # (AUTO) 0.1 (0.0-0.4); EOSINOPHILS % 2.7 % (0.0-6.0); HEMATOCRIT 29.4 % (38.2-49.6); HEMOGLOBIN 9.8 g/dL (14.0-18.0); LYMPHOCYTES # (AUTO) 0.6 (1.0-3.2); LYMPHOCYTES % 32.6 % (18.0-39.1); MEAN CORPUSCULAR HGB CONC 33.3 g/dL (31-35); MONOCYTES # (AUTO) 0.2 (0.2-0.8); MONOCYTES % 8.7 % (4.4-11.3); RED CELL DISTRIBUTION WIDTH 12.3 % (11.7-14.4)
[2022-07-17 07:17] LABS: PLATELET COUNT 43 x10e3/uL (140-360)
[2022-07-17 07:27] LABS: ANION GAP 8.5 mmol/L (8-16); CALCIUM 7.5 mg/dL (8.4-10.2); CREATININE, SERUM 0.71 mg/dL (0.72-1.25); POTASSIUM 3.5 mmol/L (3.5-5.1)
[2022-07-17] MEDS: PREDNISONE 10 MG TAB PO SCH (09:00)
[2022-07-17] MEDS: PYRIDOSTIGMINE BROMIDE 60 MG TAB PO SCH ×3 (09:00→17:13)
[2022-07-17] MEDS: TAMSULOSIN HCL 0.4 MG CAP PO SCH ×2 (09:07→17:12)
[2022-07-17] MEDS: PANTOPRAZOLE SOD 40 MG TABEC PO SCH (09:09)
[2022-07-17] MEDS: DILTIAZEM HCL ER 120 MG CAP PO SCH (09:10)
[2022-07-17 09:31] LABS: EOSINOPHILS % (MANUAL) 4 % (0-7); LYMPHOCYTES % (MANUAL) 23 % (19-48); MONOCYTES % (MANUAL) 10 % (3.4-9.0); NEUTROPHILS % (MANUAL) 63 % (40-74); PLATELET ESTIMATE MARKEDLY DECREASED; PLATELET MORPHOLOGY COMMENT NORMAL; RBC MORPHOLOGY COMMENT ABNORMAL
[2022-07-17 16:58] LABS: HEMATOCRIT 33.6 % (38.2-49.6); HEMOGLOBIN 11.2 g/dL (14.0-18.0); MEAN CORPUSCULAR HGB CONC 33.3 g/dL (31-35); PLATELET COUNT 50 x10e3/uL (140-360); RED CELL DISTRIBUTION WIDTH 12.3 % (11.7-14.4)
[2022-07-17 17:08] LABS: INR 1.11; PROTHROMBIN TIME 15.3 seconds (11.9-14.5)
[2022-07-17 17:09] LABS: PARTIAL THROMBOPLASTIN TIME 27.4 seconds (23.8-35.5)
[2022-07-17 17:11] LABS: EOSINOPHILS % (MANUAL) 1 % (0-7); LYMPHOCYTES % (MANUAL) 17 % (19-48); MONOCYTES % (MANUAL) 8 % (3.4-9.0); NEUTROPHILS % (MANUAL) 74 % (40-74)
[2022-07-17] MEDS: PREDNISONE 5 MG TAB PO SCH (17:13)
[2022-07-17 17:35] LABS: FERRITIN 72.38 ng/mL (21.81-274.66)
[2022-07-17 18:19] LABS: PLATELET ESTIMATE MARKEDLY DECREASED; PLATELET MORPHOLOGY COMMENT NORMAL; RBC MORPHOLOGY COMMENT NORMAL
[2022-07-18 00:49] VITALS: BP 140/75
[2022-07-18] MEDS: SODIUM CHLORIDE 0.9% 1000ML 1,000 ML IV SCH (05:50)
[2022-07-18 05:59] VITALS: BP 164/74
[2022-07-18 06:10] LABS: BASOPHILS % 0.4 % (0.0-1.0); EOSINOPHILS # (AUTO) 0.1 (0.0-0.4); EOSINOPHILS % 2.6 % (0.0-6.0); HEMATOCRIT 31.4 % (38.2-49.6); HEMOGLOBIN 11.3 g/dL (14.0-18.0); LYMPHOCYTES # (AUTO) 0.8 (1.0-3.2); LYMPHOCYTES % 31.2 % (18.0-39.1); MEAN CORPUSCULAR HEMOGLOBIN 35.6 pg (28-32); MEAN CORPUSCULAR VOLUME 99.1 fL (81-99); MONOCYTES # (AUTO) 0.2 (0.2-0.8); MONOCYTES % 8.3 % (4.4-11.3); NEUTROPHILS # (AUTO) 1.5 (2.1-6.9); NEUTROPHILS % 57.1 % (38.7-80.0); PLATELET COUNT 50 x10e3/uL (140-360); RED BLOOD COUNT 3.17 x10e6/uL (4.3-5.7); RED CELL DISTRIBUTION WIDTH 12.4 % (11.7-14.4)
[2022-07-18 06:31] LABS: ANION GAP 12.7 mmol/L (8-16); CALCIUM 8.1 mg/dL (8.4-10.2); CREATININE, SERUM 0.68 mg/dL (0.72-1.25); POTASSIUM 3.7 mmol/L (3.5-5.1)
[2022-07-18 08:29] VITALS: BP_SYST 122; BP_SYST 145; BP_DIAS 69
[2022-07-18 08:59] LABS: BASOPHILS % 0.4 % (0.0-1.0); EOSINOPHILS # (AUTO) 0.1 (0.0-0.4); EOSINOPHILS % 2.7 % (0.0-6.0); HEMATOCRIT 33.1 % (38.2-49.6); HEMOGLOBIN 11.1 g/dL (14.0-18.0); LYMPHOCYTES # (AUTO) 0.8 (1.0-3.2); MEAN CORPUSCULAR HEMOGLOBIN 34.8 pg (28-32); MEAN CORPUSCULAR HGB CONC 33.5 g/dL (31-35); MEAN CORPUSCULAR VOLUME 103.8 fL (81-99); MONOCYTES # (AUTO) 0.2 (0.2-0.8); NEUTROPHILS # (AUTO) 1.4 (2.1-6.9); NEUTROPHILS % 56.5 % (38.7-80.0); PLATELET COUNT 53 x10e3/uL (140-360); RED BLOOD COUNT 3.19 x10e6/uL (4.3-5.7); RED CELL DISTRIBUTION WIDTH 12.1 % (11.7-14.4)
[2022-07-18] MEDS: PREDNISONE 10 MG TAB PO SCH (09:27)
[2022-07-18] MEDS: PANTOPRAZOLE SOD 40 MG TABEC PO SCH (09:27)
[2022-07-18] MEDS: TAMSULOSIN HCL 0.4 MG CAP PO SCH (09:27)
[2022-07-18] MEDS: DILTIAZEM HCL ER 120 MG CAP PO SCH (09:28)
[2022-07-18 12:03] VITALS: BP 124/63
[2022-07-18 15:57] VITALS: BP 137/75
[2022-07-18] MEDS ORDERED: ONDANSETRON HCL 4 MG ORAL DISINTEGRATING TAB PO PRN (18:00)
== END 2022-07-18 17:52 | disposition home or self-care (01) | DRG 694 ==
LOC: ER 21:24 → ERHOLD 23:28 → MED/SURG2 07-14 12:33 → OBSVTOIN 07-16 11:26
PROVIDERS: ADMIT Internal Medicine; ATTEND Internal Medicine
DX: N13.2 Hydronephrosis with renal and ureteral calculous obstruction (principal); K76.6 Portal hypertension; D61.818 Other pancytopenia; K92.1 Melena; G70.00 Myasthenia gravis without (acute) exacerbation; D69.59 Other secondary thrombocytopenia; K74.60 Unspecified cirrhosis of liver; K75.81 Nonalcoholic steatohepatitis (NASH); I10 Essential (primary) hypertension; I86.4 Gastric varices; N40.0 Benign prostatic hyperplasia without lower urinary tract symptoms; N31.9 Neuromuscular dysfunction of bladder, unspecified; E66.9 Obesity, unspecified; K42.9 Umbilical hernia without obstruction or gangrene; N50.0 Atrophy of testis; D64.9 Anemia, unspecified; E83.51 Hypocalcemia; K57.30 Diverticulosis of large intestine without perforation or abscess without bleeding; Z68.27 Body mass index [BMI] 27.0-27.9, adult; Z83.3 Family history of diabetes mellitus; Z82.49 Family history of ischemic heart disease and other diseases of the circulatory system; Z87.891 Personal history of nicotine dependence; Z20.822 Contact with and (suspected) exposure to COVID-19
CPT/HCPCS: 36415; 51700; 74018; 74176; 80048; 81001; 82270; 82607; 82728; 82746; 83540; 83735; 83970; 84100; 84443; 84466; 84550; 85007; 85025; 85027; 85045; 85610; 85730; 86850; 86900; 87086; 94799; 96361; 99251; 99284; G0378; J0696; J1650; J1885; J2270; J2405; J7030; J7512

== ENCOUNTER 2022-07-20 20:14 | Emergency (ER) | payer MEDICARE ==
[~2022-07-20] VITALS: Ht 188 cm; Wt 97.5 kg
[~2022-07-20 20:14] MED LIST changes: +DILTIAZEM 24HR120 M1 PO; +FLOMAX0.4 MG PO; +PREDNISONE5 MG PO
[2022-07-20 20:45] LABS: BASOPHILS % 0.3 % (0.0-1.0); EOSINOPHILS # (AUTO) 0.1 (0.0-0.4); HEMATOCRIT 31.8 % (38.2-49.6); HEMOGLOBIN 10.7 g/dL (14.0-18.0); LYMPHOCYTES # (AUTO) 0.5 (1.0-3.2); LYMPHOCYTES % 17.6 % (18.0-39.1); MEAN CORPUSCULAR HEMOGLOBIN 35.1 pg (28-32); MEAN CORPUSCULAR HGB CONC 33.6 g/dL (31-35); MEAN CORPUSCULAR VOLUME 104.3 fL (81-99); MONOCYTES # (AUTO) 0.2 (0.2-0.8); MONOCYTES % 8.1 % (4.4-11.3); NEUTROPHILS # (AUTO) 2.1 (2.1-6.9); NEUTROPHILS % 71.7 % (38.7-80.0); PLATELET COUNT 59 x10e3/uL (140-360); RED BLOOD COUNT 3.05 x10e6/uL (4.3-5.7); RED CELL DISTRIBUTION WIDTH 12.6 % (11.7-14.4)
[2022-07-20 21:06] LABS: ALBUMIN 3.1 g/dL (3.5-5.0); ALBUMIN/GLOBULIN RATIO 1.1 (0.8-2.0); ANION GAP 14.9 mmol/L (8-16); CALCIUM 8.4 mg/dL (8.4-10.2); CREATININE, SERUM 0.74 mg/dL (0.72-1.25); POTASSIUM 3.9 mmol/L (3.5-5.1)
[2022-07-20 21:13] LABS: CREATINE KINASE MB 5.5 ng/mL (0-5.0)
== END 2022-07-20 21:58 | disposition home or self-care (01) ==
LOC: ER 20:18
DX: R60.9 Edema, unspecified (principal); K74.60 Unspecified cirrhosis of liver; I10 Essential (primary) hypertension; G70.00 Myasthenia gravis without (acute) exacerbation; R94.31 Abnormal electrocardiogram [ECG] [EKG]
CPT/HCPCS: 36415; 71045; 80053; 82550; 82553; 83880; 84484; 85025; 93005; 99283

== ENCOUNTER 2024-08-30 13:11 | Emergency (ER) | payer MEDICARE ==
[~2024-08-30] VITALS: Ht 188 cm; Wt 97.5 kg
[2024-08-30 14:33] VITALS: PULSE 86; RESP 17; TEMP 99; O2SAT 97
[2024-08-30] MEDS ORDERED: PYRIDOSTIGMINE BROMIDE 60 MG TAB PO STA (14:41)
[2024-08-30] MEDS ORDERED: PREDNISONE 5 MG TAB PO ONE (14:45)
[2024-08-30 14:54] LABS: BASOPHILS % 0.4 % (0.0-1.0); EOSINOPHILS % 0.4 % (0.0-6.0); HEMOGLOBIN 12.5 g/dL (14.0-18.0); LYMPHOCYTES # (AUTO) 0.4 (1.0-3.2); LYMPHOCYTES % 16.2 % (18.0-39.1); MEAN CORPUSCULAR HEMOGLOBIN 35.8 pg (28-32); MEAN CORPUSCULAR HGB CONC 32.9 g/dL (31-35); MEAN CORPUSCULAR VOLUME 108.9 fL (81-99); MONOCYTES # (AUTO) 0.3 (0.2-0.8); MONOCYTES % 14.1 % (4.4-11.3); NEUTROPHILS # (AUTO) 1.7 (2.1-6.9); NEUTROPHILS % 68.9 % (38.7-80.0); RED BLOOD COUNT 3.49 x10e6/uL (4.3-5.7); RED CELL DISTRIBUTION WIDTH 13.9 % (11.7-14.4); WHITE BLOOD COUNT 2.41 x10e3/uL (4.8-10.8)
[2024-08-30 14:58] LABS: PLATELET COUNT 45 x10e3/uL (140-360)
[2024-08-30 15:18] LABS: CORONAVIRUS COVID-19 AG NEGATIVE (NEGATIVE); INFLUENZA A AG NEGATIVE (NEGATIVE); INFLUENZA B AG NEGATIVE (NEGATIVE)
[2024-08-30 15:19] LABS: ALBUMIN 2.9 g/dL (3.5-5.0); ALBUMIN/GLOBULIN RATIO 1.1 (0.8-2.0); ANION GAP 12.1 mmol/L (8-16); BILIRUBIN,TOTAL 2.7 mg/dL (0.2-1.2); CALCIUM 8.2 mg/dL (8.4-10.2); CREATININE, SERUM 0.79 mg/dL (0.72-1.25); POTASSIUM 4.1 mmol/L (3.5-5.1); TOTAL PROTEIN 5.5 g/dL (6.5-8.1)
== END 2024-08-30 16:43 | disposition home or self-care (01) ==
LOC: ER 14:35
DX: R50.9 Fever, unspecified (principal); B34.9 Viral infection, unspecified; R05.9 Cough, unspecified; R19.7 Diarrhea, unspecified; I10 Essential (primary) hypertension; G70.00 Myasthenia gravis without (acute) exacerbation
CPT/HCPCS: 36415; 80053; 85025; 99283

== ENCOUNTER 2024-11-04 17:11 | Inpatient (IN) | payer MEDICARE ==
[~2024-11-04] VITALS: Ht 188 cm; Wt 94.9 kg
[2024-11-04 17:40] VITALS: TEMP 98.5
[2024-11-04 17:59] LABS: BASOPHILS % 0.3 % (0.0-1.0); EOSINOPHILS % 0.8 % (0.0-6.0); HEMOGLOBIN 11.3 g/dL (14.0-18.0); LYMPHOCYTES # (AUTO) 0.9 (1.0-3.2); LYMPHOCYTES % 25.3 % (18.0-39.1); MEAN CORPUSCULAR HEMOGLOBIN 36.1 pg (28-32); MEAN CORPUSCULAR HGB CONC 32.3 g/dL (31-35); MEAN CORPUSCULAR VOLUME 111.8 fL (81-99); MONOCYTES # (AUTO) 0.4 (0.2-0.8); MONOCYTES % 10.8 % (4.4-11.3); NEUTROPHILS # (AUTO) 2.3 (2.1-6.9); NEUTROPHILS % 62.8 % (38.7-80.0); PLATELET COUNT 55 x10e3/uL (140-360); RED BLOOD COUNT 3.13 x10e6/uL (4.3-5.7); RED CELL DISTRIBUTION WIDTH 13.9 % (11.7-14.4); WHITE BLOOD COUNT 3.71 x10e3/uL (4.8-10.8)
[2024-11-04 18:24] LABS: ALBUMIN 2.7 g/dL (3.5-5.0); ALBUMIN/GLOBULIN RATIO 1.1 (0.8-2.0); ANION GAP 15.1 mmol/L (8-16); BILIRUBIN,TOTAL 3.4 mg/dL (0.2-1.2); CALCIUM 8.4 mg/dL (8.4-10.2); CREATININE, SERUM 0.83 mg/dL (0.72-1.25); POTASSIUM 4.1 mmol/L (3.5-5.1); TOTAL PROTEIN 5.1 g/dL (6.5-8.1)
[2024-11-04 18:26] LABS: CLARITY,URINE CLEAR (CLEAR); COLOR,URINE AMBER (YELLOW); GLUCOSE, URINE NEGATIVE (NEGATIVE); LEUKOCYTE ESTERASE ,URINE NEGATIVE (NEGATIVE); NITRITE,URINE POSITIVE (NEGATIVE); PH,URINE 5.5 (5 - 7); PROTEIN,URINE DIPSTICK 1+ (NEGATIVE)
[2024-11-04 18:27] LABS: BILIRUBIN,URINE MODERATE (NEGATIVE); KETONES,URINE TRACE (NEGATIVE)
[2024-11-04 18:30] LABS: TROPONIN I 0.012 ng/mL (0-0.300)
[2024-11-04 18:37] LABS: CALCIUM OXALATE CRYSTALS,UR FEW (FEW); RBC,URINE 0-5 /HPF (0-5); WBC,URINE (MAN) 0-5 /HPF (0-5)
[2024-11-04 19:24] LABS: RBC MORPHOLOGY COMMENT NORMAL; ROULEAU MODERATE
[2024-11-04 19:26] LABS: PLATELET ESTIMATE MODERATELY DECREASED; PLATELET MORPHOLOGY COMMENT NORMAL
[2024-11-04] MEDS ORDERED: ONDANSETRON HCL INJ 2MG/ML 2ML 2 MG/ML VIAL IV PRN (21:30)
[2024-11-04 21:41] VITALS: PULSE 69; RESP 20
[2024-11-04] MEDS: SODIUM CHLORIDE 0.9% 1000ML 1,000 ML IV ONE (21:41)
[2024-11-04 23:42] VITALS: BP 118/65; O2SAT 100
[2024-11-04 23:44] VITALS: PULSE 64; RESP 18; O2SAT 99
[2024-11-04 23:52] VITALS: BP 118/65; PULSE 64; RESP 18; O2SAT 99
[2024-11-05] VITALS (9 sets, daily range): BP systolic 100–134; BP diastolic 54–73; PULSE 63–77; RESP 16–20; TEMP 97.9–98.3; O2SAT 97–99
[2024-11-05 06:25] LABS: BASOPHILS % 0.5 % (0.0-1.0); EOSINOPHILS % 1.5 % (0.0-6.0); HEMATOCRIT 30.8 % (38.2-49.6); HEMOGLOBIN 10.2 g/dL (14.0-18.0); LYMPHOCYTES # (AUTO) 0.7 (1.0-3.2); LYMPHOCYTES % 35.5 % (18.0-39.1); MEAN CORPUSCULAR HEMOGLOBIN 36.6 pg (28-32); MEAN CORPUSCULAR HGB CONC 33.1 g/dL (31-35); MEAN CORPUSCULAR VOLUME 110.4 fL (81-99); MONOCYTES # (AUTO) 0.2 (0.2-0.8); MONOCYTES % 9.1 % (4.4-11.3); NEUTROPHILS # (AUTO) 1.1 (2.1-6.9); NEUTROPHILS % 53.4 % (38.7-80.0); RED BLOOD COUNT 2.79 x10e6/uL (4.3-5.7); RED CELL DISTRIBUTION WIDTH 13.3 % (11.7-14.4)
[2024-11-05 06:40] LABS: PLATELET COUNT 45 x10e3/uL (140-360)
[2024-11-05 06:41] LABS: WHITE BLOOD COUNT 1.97 x10e3/uL (4.8-10.8)
[2024-11-05 06:51] LABS: ALBUMIN 2.3 g/dL (3.5-5.0); ANION GAP 10.8 mmol/L (8-16); CALCIUM 7.5 mg/dL (8.4-10.2); CREATININE, SERUM 0.61 mg/dL (0.72-1.25); POTASSIUM 3.8 mmol/L (3.5-5.1); TOTAL PROTEIN 4.5 g/dL (6.5-8.1)
[2024-11-05 07:20] LABS: TROPONIN I 0.026 ng/mL (0-0.300)
[2024-11-05] MEDS: HYDROCODONE/APAP 5MG-325MG TAB PO PRN (08:20)
[2024-11-05 10:01] LABS: BASOPHILS % (MANUAL) 1 % (0-1.5); EOSINOPHILS % (MANUAL) 3 % (0-7); LYMPHOCYTES % (MANUAL) 18 % (19-48); MONOCYTES % (MANUAL) 5 % (3.4-9.0); NEUTROPHILS % (MANUAL) 69 % (40-74); PLATELET ESTIMATE MODERATELY DECREASED; PLATELET MORPHOLOGY COMMENT NORMAL; RBC MORPHOLOGY COMMENT NORMAL; REACTIVE LYMPHOCYTES 4
[2024-11-05 14:31] LABS: TROPONIN I 0.022 ng/mL (0-0.300)
[2024-11-05] MEDS: PREDNISONE 5 MG TAB PO SCH (21:00)
[2024-11-05] MEDS: PYRIDOSTIGMINE BROMIDE 60 MG TAB PO SCH (22:00)
[2024-11-06] VITALS (8 sets, daily range): BP systolic 116–140; BP diastolic 65–73; PULSE 61–83; RESP 16–20; TEMP 97.1–98.3; O2SAT 97–99
[2024-11-06 06:34] LABS: ANION GAP 11.9 mmol/L (8-16); CALCIUM 7.5 mg/dL (8.4-10.2); CREATININE, SERUM 0.66 mg/dL (0.72-1.25); MAGNESIUM 1.8 MG/DL (1.3-2.1); POTASSIUM 4.9 mmol/L (3.5-5.1)
[2024-11-06 08:03] LABS: TROPONIN I 0.027 ng/mL (0-0.300)
[2024-11-06] MEDS: PYRIDOSTIGMINE BROMIDE 60 MG TAB PO SCH (09:00)
[2024-11-06] MEDS: PREDNISONE 10 MG TAB PO SCH (09:03)
[2024-11-06 10:39] LABS: BASOPHILS % 0.7 % (0.0-1.0); EOSINOPHILS # (AUTO) 0.1 (0.0-0.4); EOSINOPHILS % 3.2 % (0.0-6.0); HEMOGLOBIN 11.4 g/dL (14.0-18.0); LYMPHOCYTES # (AUTO) 0.9 (1.0-3.2); LYMPHOCYTES % 31.9 % (18.0-39.1); MEAN CORPUSCULAR HGB CONC 32.6 g/dL (31-35); MEAN CORPUSCULAR VOLUME 110.4 fL (81-99); MONOCYTES # (AUTO) 0.3 (0.2-0.8); NEUTROPHILS # (AUTO) 1.5 (2.1-6.9); NEUTROPHILS % 53.2 % (38.7-80.0); PLATELET COUNT 50 x10e3/uL (140-360); RED BLOOD COUNT 3.17 x10e6/uL (4.3-5.7); RED CELL DISTRIBUTION WIDTH 13.5 % (11.7-14.4); WHITE BLOOD COUNT 2.82 x10e3/uL (4.8-10.8)
[2024-11-06] MEDS: DILTIAZEM HCL ER 120 MG CAP PO SCH (19:15)
[2024-11-07] VITALS (8 sets, daily range): BP systolic 99–121; BP diastolic 50–62; PULSE 61–75; RESP 18–20; TEMP 97.8–98.9; O2SAT 97–100
[2024-11-07 06:35] LABS: HEMATOCRIT 31.2 % (38.2-49.6); HEMOGLOBIN 10.4 g/dL (14.0-18.0); MEAN CORPUSCULAR HEMOGLOBIN 36.5 pg (28-32); MEAN CORPUSCULAR HGB CONC 33.3 g/dL (31-35); MEAN CORPUSCULAR VOLUME 109.5 fL (81-99); RED BLOOD COUNT 2.85 x10e6/uL (4.3-5.7); RED CELL DISTRIBUTION WIDTH 13.2 % (11.7-14.4); WHITE BLOOD COUNT 2.61 x10e3/uL (4.8-10.8)
[2024-11-07 06:53] LABS: ANION GAP 11.6 mmol/L (8-16); CALCIUM 7.7 mg/dL (8.4-10.2); CREATININE, SERUM 0.61 mg/dL (0.72-1.25); POTASSIUM 3.6 mmol/L (3.5-5.1)
[2024-11-07 07:11] LABS: PLATELET COUNT 46 x10e3/uL (140-360)
[2024-11-07 07:17] LABS: INR 1.67; PROTHROMBIN TIME 20.6 seconds (11.9-14.5)
[2024-11-07] MEDS: TAMSULOSIN HCL 0.4 MG CAP PO SCH (08:51)
[2024-11-07 11:19] LABS: EOSINOPHILS % (MANUAL) 2 % (0-7); LYMPHOCYTES % (MANUAL) 31 % (19-48); MONOCYTES % (MANUAL) 9 % (3.4-9.0); NEUTROPHILS % (MANUAL) 58 % (40-74)
[2024-11-07 11:20] LABS: ANISOCYTOSIS SLIGHT; PLATELET ESTIMATE MARKEDLY DECREASED; PLATELET MORPHOLOGY COMMENT NORMAL
[2024-11-08] VITALS: BP 125/63; PULSE 80; RESP 18; TEMP 98; O2SAT 99
[2024-11-08 04:00] VITALS: BP 108/66; PULSE 73; RESP 18; TEMP 97.8; O2SAT 98
[2024-11-08 06:30] LABS: BASOPHILS % 0.5 % (0.0-1.0); EOSINOPHILS % 2.1 % (0.0-6.0); HEMATOCRIT 28.6 % (38.2-49.6); HEMOGLOBIN 10.1 g/dL (14.0-18.0); LYMPHOCYTES # (AUTO) 0.6 (1.0-3.2); LYMPHOCYTES % 30.7 % (18.0-39.1); MEAN CORPUSCULAR HEMOGLOBIN 36.7 pg (28-32); MEAN CORPUSCULAR HGB CONC 35.3 g/dL (31-35); MONOCYTES # (AUTO) 0.2 (0.2-0.8); MONOCYTES % 10.6 % (4.4-11.3); NEUTROPHILS # (AUTO) 1.1 (2.1-6.9); NEUTROPHILS % 55.6 % (38.7-80.0); RED BLOOD COUNT 2.75 x10e6/uL (4.3-5.7); RED CELL DISTRIBUTION WIDTH 14.1 % (11.7-14.4)
[2024-11-08 06:38] LABS: PLATELET COUNT 40 x10e3/uL (140-360); WHITE BLOOD COUNT 1.89 x10e3/uL (4.8-10.8)
[2024-11-08 06:55] LABS: CALCIUM 7.8 mg/dL (8.4-10.2); CREATININE, SERUM 0.6 mg/dL (0.72-1.25)
[2024-11-08 08:09] VITALS: BP 134/67; PULSE 79; RESP 18; TEMP 98.9; O2SAT 100
[2024-11-08 11:18] VITALS: BP 107/61; PULSE 66; RESP 17; TEMP 97.8; O2SAT 99
[2024-11-08 11:52] LABS: LYMPHOCYTES % (MANUAL) 34 % (19-48); MONOCYTES % (MANUAL) 4 % (3.4-9.0); NEUTROPHILS % (MANUAL) 62 % (40-74)
[2024-11-08 11:53] LABS: HYPOCHROMASIA SLIGHT; PLATELET ESTIMATE MODERATELY DECREASED; PLATELET MORPHOLOGY COMMENT NORMAL; RBC MORPHOLOGY COMMENT ABNORMAL
[2024-11-08] MEDS ORDERED: MESTINON60 MG PO (12:28)
[2024-11-09 11:17] LABS: HEPATITIS A ANTIBODY IGM (P) Negative; HEPATITIS B SURFACE AG (P) Negative
[2024-11-09 11:18] LABS: HEPATITIS B CORE IGM (P) Negative; HEPATITIS C ANTIBODY Non Reactive
== END 2024-11-08 15:16 | disposition home or self-care (01) | DRG 57 ==
LOC: ER 18:09 → ERHOLD 21:23 → MED/SURG3 23:11
PROVIDERS: ADMIT Internal Medicine; ATTEND Internal Medicine
DX: G70.00 Myasthenia gravis without (acute) exacerbation (principal); E87.1 Hypo-osmolality and hyponatremia; R62.7 Adult failure to thrive; K74.60 Unspecified cirrhosis of liver; D69.59 Other secondary thrombocytopenia; F03.90 Unspecified dementia, unspecified severity, without behavioral disturbance, psychotic disturbance, mood disturbance, and anxiety; I10 Essential (primary) hypertension; R53.81 Other malaise; R60.0 Localized edema; D72.818 Other decreased white blood cell count; D64.9 Anemia, unspecified; Z68.26 Body mass index [BMI] 26.0-26.9, adult; Z79.52 Long term (current) use of systemic steroids; Z86.73 Personal history of transient ischemic attack (TIA), and cerebral infarction without residual deficits; Z87.891 Personal history of nicotine dependence
CPT/HCPCS: 36415; 70450; 80048; 80053; 81001; 82140; 82550; 82607; 82746; 83540; 83735; 84466; 84484; 85007; 85025; 85027; 85610; 93005; 94799; 99284; J7030; J7512

== ENCOUNTER 2025-01-18 17:40 | Emergency (ER) | payer MEDICARE ==
[~2025-01-18] VITALS: Ht 190.5 cm; Wt 86.2 kg
[~2025-01-18 17:40] MED LIST changes: +MESTINON60 MG PO
[2025-01-18 17:57] VITALS: RESP 18; TEMP 98.1
[2025-01-18 18:56] LABS: BASOPHILS % 0.6 % (0.0-1.0); EOSINOPHILS # (AUTO) 0.1 (0.0-0.4); EOSINOPHILS % 3.1 % (0.0-6.0); HEMATOCRIT 29.6 % (38.2-49.6); HEMOGLOBIN 10.2 g/dL (14.0-18.0); LYMPHOCYTES # (AUTO) 1.1 (1.0-3.2); LYMPHOCYTES % 32.5 % (18.0-39.1); MEAN CORPUSCULAR HEMOGLOBIN 35.9 pg (28-32); MEAN CORPUSCULAR HGB CONC 34.5 g/dL (31-35); MEAN CORPUSCULAR VOLUME 104.2 fL (81-99); MONOCYTES # (AUTO) 0.3 (0.2-0.8); MONOCYTES % 10.2 % (4.4-11.3); NEUTROPHILS # (AUTO) 1.7 (2.1-6.9); NEUTROPHILS % 53.3 % (38.7-80.0); PLATELET COUNT 54 x10e3/uL (140-360); RED BLOOD COUNT 2.84 x10e6/uL (4.3-5.7); RED CELL DISTRIBUTION WIDTH 15.2 % (11.7-14.4); WHITE BLOOD COUNT 3.23 x10e3/uL (4.8-10.8)
[2025-01-18 19:21] LABS: ALBUMIN 2.2 g/dL (3.5-5.0); ALBUMIN/GLOBULIN RATIO 0.9 (0.8-2.0); ANION GAP 12.2 mmol/L (8-16); BILIRUBIN,TOTAL 3.5 mg/dL (0.2-1.2); CALCIUM 7.6 mg/dL (8.4-10.2); CREATININE, SERUM 0.74 mg/dL (0.72-1.25); TOTAL PROTEIN 4.6 g/dL (6.5-8.1)
[2025-01-18 19:23] LABS: POTASSIUM 3.2 mmol/L (3.5-5.1)
[2025-01-18 20:01] LABS: CLARITY,URINE CLEAR (CLEAR); COLOR,URINE AMBER (YELLOW); LEUKOCYTE ESTERASE ,URINE NEGATIVE (NEGATIVE); NITRITE,URINE POSITIVE (NEGATIVE); PH,URINE 6 (5 - 7)
[2025-01-18 20:02] LABS: BILIRUBIN,URINE MODERATE (NEGATIVE); GLUCOSE, URINE NEGATIVE (NEGATIVE); KETONES,URINE TRACE (NEGATIVE); PROTEIN,URINE DIPSTICK 1+ (NEGATIVE); URINE UROBILINOGEN 2 mg/dL (0.2 - 1)
[2025-01-18 20:09] LABS: BACTERIA,URINE MANY /HPF; EPITHELIAL CELLS,URINE RARE /LPF; MUCUS,URINE MANY; RBC,URINE 0-5 /HPF (0-5); WBC,URINE (MAN) 0-5 /HPF (0-5)
[2025-01-18 20:10] LABS: CALCIUM OXALATE CRYSTALS,UR MANY (FEW)
[2025-01-18 20:30] VITALS: PULSE 71
[2025-01-18 20:51] VITALS: BP 117/66; O2SAT 98
== END 2025-01-18 20:51 | disposition home or self-care (01) ==
LOC: ER 20:07
DX: K62.5 Hemorrhage of anus and rectum (principal); R60.9 Edema, unspecified; K74.60 Unspecified cirrhosis of liver; I10 Essential (primary) hypertension; F03.90 Unspecified dementia, unspecified severity, without behavioral disturbance, psychotic disturbance, mood disturbance, and anxiety; G70.00 Myasthenia gravis without (acute) exacerbation; Z87.442 Personal history of urinary calculi
CPT/HCPCS: 36415; 71045; 80053; 81001; 83880; 85025; 99284